=== PATIENT | female | born 1985 | race African-American/Black ===

== ENCOUNTER → 2018-12-25 | Outpatient (CLI) | payer BC ==
--- NOTE | 2018-12-25 09:56 | RAD ---
Ultrasound-guided right breast aspiration, 12/25/2018: History: Breast mass, possible abscess Previous studies demonstrated a large hypoechoic mass centered at the 6:00 retroareolar region. Under local anesthesia, aseptic conditions and sonographic guidance a 13-gauge needle was passed into this mass via a lateral approach. The wall of this mass was tough and resistant to passage of the needle. Approximately 45 cc of thick whitish fluid was drained from this mass. Post aspiration scans demonstrated nearly complete collapse of the lesion. The needle was removed and hemostasis obtained. The fluid was sent to the lab for appropriate studies. The patient tolerated the procedure well and left the department in good condition. IMPRESSION: Ultrasound-guided drainage of a thick-walled abscess with lab results to follow.
== END | disposition home or self-care (01) ==
LOC: EDUNIT# 12-23 13:30 → US 08:23
PROVIDERS: ATTEND Surgery
DX: N61.1 Abscess of the breast and nipple (principal)
CPT/HCPCS: 19000; 76942; 87071; 87075